=== PATIENT | male | born 1935 | race Caucasian/White ===

== ENCOUNTER → 2019-08-31 | Outpatient (CLI) | payer OTHER ==
[~2019-08-31] MED LIST: ACYC5TO15G TOP; ACYC800 PO; ALLO300 PO; AMLO10 PO; AMLO5; ASPI325 PO; ASPI81CH PO; ERGO400; FLONASE ALLERG9.9 ML; HYDACE7.5 PO; HYDCHL25 PO; HYDMOR2 PO; LISI20; METPRE4DP PO; ROSU10TA; RXHYDMOR2 PO; SIMV10 PO; ZESTRIL40 MG PO
[2019-08-31 14:41] LABS: Anion Gap 4 mmol/L (6-16); Blood Urea Nitrogen 27 mg/dL (8-24); Bun/Creatinine Ratio 23.3 (12.0-20.0); CO2, Blood 26 mmol/L (21-32); Calcium, Blood 9.5 mg/dL (8.5-10.1); Chloride, Blood 108 mmol/L (98-108); Creatinine, Blood 1.16 mg/dL (0.60-1.20); Glomerular Filtration Rate >60 (60-); Glucose, Blood 96 mg/dL (70-99); Potassium, Blood 4.1 mmol/L (3.5-5.5); Sodium, Blood 138 mmol/L (136-145)
== END | disposition home or self-care (01) ==
LOC: LAB 09:50 → LAB SHORT 09:50
PROVIDERS: Hospitalist
DX: I10 Essential (primary) hypertension (principal)
CPT/HCPCS: 80048

== ENCOUNTER → 2020-02-23 | Outpatient (CLI) | payer OTHER ==
[2020-02-23 15:36] LABS: Cholesterol 160 mg/dL (50-200); HDL Cholesterol 32 mg/dL (>39); LDL/HDL RATIO 3.4; Low Density Lipoprotein Chol 108 mg/dL (0-110); Triglycerides 102 mg/dL (30-160); Very Low Density Lipoprot Chol 20 mg/dL (6-32)
== END ==
LOC: LAB 13:49 → LAB SHORT 13:49
PROVIDERS: Hospitalist
DX: Z12.5 Encounter for screening for malignant neoplasm of prostate (principal); E78.5 Hyperlipidemia, unspecified; I10 Essential (primary) hypertension
CPT/HCPCS: 80061; G0103

== ENCOUNTER → 2020-06-19 | Outpatient (CLI) | payer OTHER | END | disposition home or self-care (01) | LOC: LAB SHORT 10:45 → PLD 10:45 | DX: L81.4 Other melanin hyperpigmentation (principal) | CPT/HCPCS: 88305 ==

== ENCOUNTER 2020-07-28 21:28 | Emergency (ER) | payer OTHER ==
[~2020-07-28] VITALS: Ht 180.3 cm; Wt 97.5 kg
[2020-07-28] MEDS ORDERED: Naprosyn500 MG PO (22:38)
== END 2020-07-28 23:05 | disposition home or self-care (01) ==
LOC: ER 21:28
DX: M25.552 Pain in left hip (principal); I10 Essential (primary) hypertension; Z79.899 Other long term (current) drug therapy; Z79.82 Long term (current) use of aspirin; Z87.891 Personal history of nicotine dependence
CPT/HCPCS: 96372; 99283-25; J1885

== ENCOUNTER 2021-03-29 06:18 | Day surgery (SDC) | payer OTHER ==
[~2021-03-29] VITALS: Ht 180.3 cm; Wt 97.7 kg
[~2021-03-29 06:18] MED LIST changes: +Naprosyn500 MG PO; +Percocet 5-3251 EACH PO
--- NOTE | 2021-03-29 06:55 | NUR ---
03/29/21 0655 Kami Sorenson 0638 TETRACAINE DROP PLACED IN LT EYE PER DR ORDERS. 0641 PLEDGET PLACED IN LT EYE PER DR ORDERS.
== END 2021-03-29 08:11 | disposition home or self-care (01) ==
LOC: ORSCSDS 06:18
PROVIDERS: Ophthalmology
PROC: 08RK3JZ Replacement of Left Lens with Synthetic Substitute, Percutaneous Approach (ICD-10-PCS; principal; 2021-03-29 07:30)
DX: H25.12 Age-related nuclear cataract, left eye (principal); I10 Essential (primary) hypertension; Z79.899 Other long term (current) drug therapy; Z87.891 Personal history of nicotine dependence
CPT/HCPCS: A9270; J2001; J2250; J3010; J3301; J7040; V2632

== ENCOUNTER 2021-05-03 11:53 | Day surgery (SDC) | payer OTHER ==
[~2021-05-03] VITALS: Ht 180.3 cm; Wt 97.9 kg
--- NOTE | 2021-05-03 12:20 | NUR ---
05/03/21 1220 Rell Rivera CALL LIGHT WITHIN REACH. PLEDGET AND TETRACAINE PLACED AT 1209 ON RIGHT EYE.
== END 2021-05-03 13:50 | disposition home or self-care (01) ==
LOC: ORSCSDS 11:53
PROVIDERS: Ophthalmology
PROC: 08RJ3JZ Replacement of Right Lens with Synthetic Substitute, Percutaneous Approach (ICD-10-PCS; principal; 2021-05-03 13:00)
DX: H25.11 Age-related nuclear cataract, right eye (principal); I10 Essential (primary) hypertension; E66.9 Obesity, unspecified; Z68.30 Body mass index [BMI] 30.0-30.9, adult; Z79.899 Other long term (current) drug therapy
CPT/HCPCS: J2001; J2250; J3301; J7040; V2632

== ENCOUNTER → 2021-09-13 | Outpatient (CLI) | payer OTHER ==
[2021-09-13 15:43] LABS: Albumin, Blood 3.8 g/dL (3.4-5.0); Albumin/Globulin Ratio 0.9 (0.8-1.8); Bilirubin, Total 0.8 mg/dL (0.1-1.0); Bun/Creatinine Ratio 21.2 (12.0-20.0); Calcium, Blood 9.2 mg/dL (8.5-10.1); Creatinine, Blood 1.18 mg/dL (0.60-1.20); Globulin, Blood 4.3 g/dL (2.2-4.0); Total Protein, Blood 8.1 g/dL (6.4-8.2)
== END | disposition home or self-care (01) ==
LOC: LAB 10:22 → LAB SHORT 10:22
PROVIDERS: Hospitalist
DX: I10 Essential (primary) hypertension (principal)
CPT/HCPCS: 80053

== ENCOUNTER → 2022-07-18 | Outpatient (CLI) | payer OTHER ==
[2022-07-18 17:30] LABS: Bun/Creatinine Ratio 14.7 (12.0-20.0); Calcium, Blood 8.9 mg/dL (8.5-10.1); Creatinine, Blood 1.02 mg/dL (0.60-1.20); Potassium, Blood 4.2 mmol/L (3.5-5.5)
== END | disposition home or self-care (01) ==
LOC: LAB 08:50 → LAB SHORT 08:50
PROVIDERS: Hospitalist
DX: N17.1 Acute kidney failure with acute cortical necrosis (principal)
CPT/HCPCS: 80048

== ENCOUNTER → 2023-02-18 | Outpatient (CLI) | payer OTHER ==
[2023-02-18 16:10] LABS: Anion Gap 3 mmol/L (6-16); Blood Urea Nitrogen 25 mg/dL (8-24); Bun/Creatinine Ratio 20.7 (12.0-20.0); CO2, Blood 27 mmol/L (21-32); Calcium, Blood 9.1 mg/dL (8.5-10.1); Chloride, Blood 110 mmol/L (98-108); Cholesterol 146 mg/dL (50-200); Creatinine, Blood 1.21 mg/dL (0.60-1.20); Glomerular Filtration Rate 58 (60-); Glucose, Blood 100 mg/dL (70-99); HDL Cholesterol 29 mg/dL (>39); LDL/HDL RATIO 3.2; Low Density Lipoprotein Chol 93 mg/dL (0-110); Potassium, Blood 4.1 mmol/L (3.5-5.5); Sodium, Blood 140 mmol/L (136-145); Triglycerides 119 mg/dL (30-160); Very Low Density Lipoprot Chol 23 mg/dL (6-32)
== END | disposition home or self-care (01) ==
LOC: LAB SHORT 08:40 → LAB 08:40
PROVIDERS: Hospitalist
DX: I12.9 Hypertensive chronic kidney disease with stage 1 through stage 4 chronic kidney disease, or unspecified chronic kidney disease (principal); N18.31 Chronic kidney disease, stage 3a; E78.5 Hyperlipidemia, unspecified; R97.20 Elevated prostate specific antigen [PSA]
CPT/HCPCS: 80048; 80061; 83970; 84153

== ENCOUNTER 2023-08-31 16:19 | Emergency (ER) | payer OTHER ==
[~2023-08-31] VITALS: Ht 180.3 cm; Wt 92.5 kg
[2023-08-31 16:29] VITALS: BP 155/87
== END 2023-08-31 18:00 | disposition home or self-care (01) ==
LOC: ER 16:19
DX: S46.112A Strain of muscle, fascia and tendon of long head of biceps, left arm, initial encounter (principal); X50.0XXA Overexertion from strenuous movement or load, initial encounter; Z79.899 Other long term (current) drug therapy; Z79.82 Long term (current) use of aspirin; I10 Essential (primary) hypertension
CPT/HCPCS: 76882; 99283-25

== ENCOUNTER 2023-12-25 05:33 | Emergency (ER) | payer OTHER ==
[~2023-12-25] VITALS: Ht 180.3 cm; Wt 90.7 kg
[2023-12-25 08:26] VITALS: BP 144/73
[2023-12-25] MEDS ORDERED: CEPH500 PO (08:27)
== END 2023-12-25 08:52 | disposition home or self-care (01) ==
LOC: ER 05:33
DX: L02.31 Cutaneous abscess of buttock (principal); I10 Essential (primary) hypertension; Z79.82 Long term (current) use of aspirin; Z79.899 Other long term (current) drug therapy; Z87.891 Personal history of nicotine dependence
CPT/HCPCS: 99282

== ENCOUNTER → 2024-02-24 | Outpatient (CLI) | payer OTHER ==
[~2024-02-24] MED LIST changes: +CEPH500 PO
[2024-02-24 16:02] LABS: Calcium, Blood 8.9 mg/dL (8.5-10.1); Creatinine, Blood 1.26 mg/dL (0.60-1.20); Potassium, Blood 4.1 mmol/L (3.5-5.5)
== END | disposition home or self-care (01) ==
LOC: LAB 09:05 → LAB SHORT 09:05
PROVIDERS: Hospitalist
DX: I12.9 Hypertensive chronic kidney disease with stage 1 through stage 4 chronic kidney disease, or unspecified chronic kidney disease (principal)
CPT/HCPCS: 80048

== ENCOUNTER 2024-03-17 11:32 | Emergency (ER) | payer OTHER ==
[~2024-03-17] VITALS: Ht 180.3 cm; Wt 86.2 kg
[2024-03-17 12:29] LABS: BASOPHILS ABSOLUTE AUTO 0.02 K/mm3 (0.00-0.23); BASOPHILS PERCENT AUTO 0 % (0-2); EOSINOPHILS ABSOLUTE AUTO 0.12 K/mm3 (0.00-0.68); EOSINOPHILS PERCENT AUTO 2 % (0-6); Hemoglobin 8.9 g/dL (13.5-17.5); Mean Corpuscular HGB 23.7 pg (26.0-34.0); Mean Corpuscular HGB Conc 28.7 g/dL (31.5-36.5); Mean Corpuscular Volume 83 fL (80-100); NRBC ABSOLUTE 0.06 K/mm3 (0.00-0.02); NRBC Auto 0.9 /100 WBC (0.0-0.2); Platelet Count 96 K/mm3 (150-400); RDW Coefficient Variation 21.8 % (11.7-14.2); RDW Standard Deviation 62.3 fL (35.1-46.3); Red Blood Cell Count 3.75 M/mm3 (4.30-5.90); White Blood Cell Count 6.47 K/mm3 (4.00-11.30)
[2024-03-17 12:33] LABS: IMMATURE GRAN ABSOLUTE AUTO 0.36 K/mm3 (0.00-0.10); IMMATURE GRAN PERCENT AUTO 6 % (0-1); LYMPHOCYTES ABSOLUTE AUTO 2.39 K/mm3 (0.84-5.20); LYMPHOCYTES PERCENT AUTO 37 % (21-46); MONOCYTES ABSOLUTE AUTO 0.66 K/mm3 (0.16-1.47); MONOCYTES PERCENT AUTO 10 % (4-13); NEUTROPHILS ABSOLUTE AUTO 2.92 K/mm3 (1.96-9.15); NEUTROPHILS PERCENT AUTO 45 % (41-73)
[2024-03-17 12:53] LABS: BASOPHILS ABSOLUTE MAN 0.06 K/mm3 (0.00-0.23); BASOPHILS PERCENT MAN 1 % (0-2); EOSINOPHILS ABSOLUTE MAN 0.19 K/mm3 (0.00-0.68); EOSINOPHILS PERCENT MAN 3 % (0-6); LYMPHOCYTES % ATYPICAL MANUAL 2 % (0-0); LYMPHOCYTES ABSOLUTE MAN 2.97 K/mm3 (0.84-5.20); LYMPHOCYTES PERCENT MAN 44 % (21-46); MONOCYTES ABSOLUTE MAN 0.19 K/mm3 (0.16-1.47); MONOCYTES PERCENT MAN 3 % (4-13); MYELOCYTE ABSOLUTE MAN 0.12 K/mm3 (0.00-0.00); MYELOCYTE PERCENT MAN 2 % (0-0); NEUTROPHILS ABSOLUTE MAN 2.91 K/mm3 (1.96-9.15); SEG NEUTROPHILS PERCENT MAN 45 % (41-73); TOTAL CELLS COUNTED 100
[2024-03-17 13:06] LABS: Albumin, Blood 3.5 g/dL (3.4-5.0); Albumin/Globulin Ratio 0.8 (0.8-1.8); Bilirubin, Total 0.6 mg/dL (0.1-1.0); Bun/Creatinine Ratio 15.1 (12.0-20.0); Creatinine, Blood 1.52 mg/dL (0.60-1.20); Globulin, Blood 4.5 g/dL (2.2-4.0); Potassium, Blood 3.7 mmol/L (3.5-5.5)
[2024-03-17] MEDS ORDERED: TraMADol HCl 50 MG Tab PO ONE (15:55)
[2024-03-17] MEDS ORDERED: Ketorolac Tromethamine 30mg Vial IV ONE (15:55)
[2024-03-17] MEDS ORDERED: Ultram50 MG PO (15:55)
[2024-03-17 16:02] VITALS: BP 151/80
== END 2024-03-17 16:10 | disposition home or self-care (01) ==
LOC: ER 11:32
PROVIDERS: Student in an Organized Health Care Education/Training Program
DX: M54.16 Radiculopathy, lumbar region (principal); G62.9 Polyneuropathy, unspecified; I10 Essential (primary) hypertension; E78.5 Hyperlipidemia, unspecified; Z87.891 Personal history of nicotine dependence
CPT/HCPCS: 71046; 72100; 74175; 80053; 85025; 93005; 93010; 96374-59; 99285-25; A9270; J1885; Q9967

== ENCOUNTER 2024-05-10 16:28 | Inpatient (IN) | payer OTHER ==
[~2024-05-10] VITALS: Ht 180.3 cm; Wt 83.2 kg
[2024-05-10 17:10] LABS: Source, Urine Clean Catch
[2024-05-10 17:31] LABS: Appearance, Urine Bloody (Clear); Bilirubin, Urine Neg (Neg); Blood, Urine 5+ (Neg); Color, Urine Red (P-Yellow); Glucose Qualitative, Urine Neg (Neg); Ketones, Urine 1+ (Neg); Leukocyte Esterase, Urine 2+ (Neg); Nitrite, Urine Pos (Neg); Protein, Urine 4+ (Neg); Specific Gravity, Urine 1.015 (1.003-1.022); Urobilinogen, Urine 1+ (Normal)
[2024-05-10 17:33] LABS: Red Blood Cells, Urine TNTC /hpf (0-2); White Blood Cells, Urine TNTC /hpf (0-5)
[2024-05-10 17:36] LABS: Bacteria Many /hpf; Squamous Epithelial Cells Rare /hpf (Few)
[2024-05-10 17:37] LABS: Mucus Light (0-Heavy); Renal Epithelial Rare /hpf (0-Rare)
[2024-05-10] MEDS ORDERED: CeFAZolin Sodium 1,000 MG in NS 50 ML IV ONE (18:45)
[2024-05-10] MEDS ORDERED: NS 1,000 ML IV SCH ×2 (18:45→21:05)
[2024-05-10 18:48] LABS: Albumin, Blood 3.3 g/dL (3.4-5.0); Albumin/Globulin Ratio 0.7 (0.8-1.8); Bilirubin, Total 0.5 mg/dL (0.1-1.0); Bun/Creatinine Ratio 20.9 (12.0-20.0); Creatinine, Blood 1.53 mg/dL (0.60-1.20); Globulin, Blood 4.6 g/dL (2.2-4.0); Potassium, Blood 3.9 mmol/L (3.5-5.5); Total Protein, Blood 7.9 g/dL (6.4-8.2)
[2024-05-10 19:09] LABS: International Normalized Ratio 1.12; Prothrombin Time Results 11.9 Sec (9.7-11.5)
[2024-05-10 20:44] LABS: IMMATURE RETIC FRACTION 45.3 % (2.3-16.0); RETIC HGB EQUIVALENT 18.7 pg (28.20-36.60); RETICULOCYTE ABSOLUTE 0.1454 M/mm3 (0.0200-0.1100); RETICULOCYTE COUNT PERCENT 4.8 % (0.50-2.50)
[2024-05-10] MEDS ORDERED: Azithromycin 500 MG in NS 250 ML IV SCH (21:00)
[2024-05-10] MEDS ORDERED: CefTRIAXone Sodium 1,000 MG in NS 100 ML IV SCH (21:00)
[2024-05-10] MEDS ORDERED: OxyCODONE HCL 5 MG TAB PO PRN (21:05)
[2024-05-10] MEDS ORDERED: Ondansetron HCl 2 MG / ML 2ML Vial IV PRN (21:05)
[2024-05-10] MEDS ORDERED: Acetaminophen 325 MG TABLET PO PRN (21:05)
[2024-05-10] MEDS ORDERED: Allopurinol 100 MG Tab PO SCH (22:00)
[2024-05-11] VITALS (7 sets, daily range): BP systolic 103–149; BP diastolic 49–79
--- NOTE | 2024-05-11 01:29 | NUR ---
ADMISSION NOTE PATIENT ARRIVED TO PCU 01 VIA STRETCHER. HE WAS ABLE TO STAND AND SELF TRANSFER TO THE BED. PATIENT IS ALERT AND ORIENTED X4. DNR WRISTBAND PLACED ON PATIENT'S LEFT WRIST. DENIES HAVING ANY PAIN OR SHORTNESS OF BREATH. NO SKIN BREAKDOWN NOTED. VITAL SIGNS STABLE, SINUS RHYTHM ON TELE. ON 2 LITERS O2 VIA NASAL CANULA TO MAINTAIN SPO2 >90%. WILL CONTINUE TO MONITOR. CALL LIGHT WITHIN REACH.
[2024-05-11 04:26] LABS: International Normalized Ratio 1.19; Prothrombin Time Results 12.6 Sec (9.7-11.5)
[2024-05-11 04:40] LABS: Albumin, Blood 3.1 g/dL (3.4-5.0); Albumin/Globulin Ratio 0.8 (0.8-1.8); Bilirubin, Total 0.6 mg/dL (0.1-1.0); Bun/Creatinine Ratio 21.7 (12.0-20.0); Calcium, Blood 8.5 mg/dL (8.5-10.1); Creatinine, Blood 1.29 mg/dL (0.60-1.20); Globulin, Blood 3.9 g/dL (2.2-4.0); Magnesium, Blood 2.2 mg/dL (1.6-2.4); Potassium, Blood 3.6 mmol/L (3.5-5.5)
--- NOTE | 2024-05-11 05:44 | NUR ---
SHIFT SUMMARY PATIENT ALERT AND ORIENTED X4. HAD NO COMPLAINTS OF PAIN OR SHORTNESS OF BREATH. VITAL SIGNS STABLE, CURRENTLY ON 3 LITERS O2 VIA NC WITH SPO2 >90%. NO ACUTE ISSUES NOTED OVERNIGHT. WILL CONTINUE TO MONITOR. CALL LIGHT WITHIN REACH.
[2024-05-11 05:46] LABS: Acinetobacter baumannii DNA Not Detected copy/mL (NOT DETECT); Adenovirus DNA Not Detected (NOT DETECT); CTX-M Resistance Gene Not Detected; Chlamydia pneumonia Not Detected (NOT DETECT); Enterobacter cloacae DNA Not Detected copy/mL (NOT DETECT); Escherichia coli DNA Not Detected copy/mL (NOT DETECT); Haemophilus influenzae DNA Not Detected copy/mL (NOT DETECT); Human Coronavirus RNA Not Detected (NOT DETECT); Human Metapneumovirus RNA Not Detected (NOT DETECT); IMP Resistance Gene Not Detected; Influenza virus A RNA Not Detected (NOT DETECT); Influenza virus B RNA Not Detected (NOT DETECT); KPC Resistance Gene Not Detected; Klebsiella aerogenes DNA Not Detected copy/mL (NOT DETECT); Klebsiella oxytoca DNA Not Detected copy/mL (NOT DETECT); Klebsiella pneumoniae DNA Detected Bin 10^4 copy/mL (NOT DETECT); Legionella pneumophila Not Detected (NOT DETECT); Moraxella catarrhalis DNA Not Detected copy/mL (NOT DETECT); Mycoplasma pneumoniae Not Detected (NOT DETECT); NDM Resistance Gene Not Detected; OXA-48-like Resistance Gene Not Detected; Parainfluenza virus RNA Not Detected (NOT DETECT); Proteus sp DNA Not Detected copy/mL (NOT DETECT); Pseudomonas aeruginosa DNA Not Detected copy/mL (NOT DETECT); Respiratory syncytial Vir RNA Not Detected (NOT DETECT); Rhinovirus+Enterovirus RNA Not Detected (NOT DETECT); Serratia marcescens DNA Not Detected copy/mL (NOT DETECT); Staphylococcus aureus DNA Not Detected copy/mL (NOT DETECT); Streptococcus agalactiae DNA Not Detected copy/mL (NOT DETECT); Streptococcus pneumoniae DNA Not Detected copy/mL (NOT DETECT); Streptococcus pyogenes DNA Not Detected copy/mL (NOT DETECT); VIM Resistance Gene Not Detected
[2024-05-11 05:48] LABS: Hemoglobin 8.1 g/dL (13.5-17.5); Mean Corpuscular HGB 25.6 pg (26.0-34.0); Mean Corpuscular HGB Conc 31.2 g/dL (31.5-36.5); Mean Corpuscular Volume 82 fL (80-100); NRBC ABSOLUTE 0.63 K/mm3 (0.00-0.02); NRBC Auto 2.8 /100 WBC (0.0-0.2); RDW Coefficient Variation 19.3 % (11.7-14.2); RDW Standard Deviation 54.7 fL (35.1-46.3); Red Blood Cell Count 3.17 M/mm3 (4.30-5.90); White Blood Cell Count 22.82 K/mm3 (4.00-11.30)
[2024-05-11 05:52] LABS: Platelet Count 44 K/mm3 (150-400)
[2024-05-11 06:19] LABS: BAND PERCENT MAN 8 % (0-8); BASOPHILS PERCENT MAN 0 % (0-2); EOSINOPHILS ABSOLUTE MAN 0.68 K/mm3 (0.00-0.68); EOSINOPHILS PERCENT MAN 3 % (0-6); LYMPHOCYTES % ATYPICAL MANUAL 1 % (0-0); LYMPHOCYTES ABSOLUTE MAN 6.16 K/mm3 (0.84-5.20); LYMPHOCYTES PERCENT MAN 26 % (21-46); METAMYELOCYTE ABSOLUTE MAN 0.22 K/mm3 (0.00-0.00); METAMYELOCYTE PERCENT MAN 1 % (0-0); MONOCYTES ABSOLUTE MAN 2.28 K/mm3 (0.16-1.47); MONOCYTES PERCENT MAN 10 % (4-13); NEUTROPHILS ABSOLUTE MAN 11.18 K/mm3 (1.96-9.15); SEG NEUTROPHILS PERCENT MAN 41 % (41-73); TOTAL CELLS COUNTED 100
[2024-05-11 06:20] LABS: BLASTS PERCENT MAN 2 % (0-0); MYELOCYTE ABSOLUTE MAN 1.59 K/mm3 (0.00-0.00); MYELOCYTE PERCENT MAN 7 % (0-0); PROMYELOCYTE ABSOLUTE MAN 0.22 K/mm3 (0.00-0.00); PROMYELOCYTE PERCENT MAN 1 % (0-0)
[2024-05-11 07:31] LABS: Adenovirus Not Detected (NOT DETECT); Bordetella pertussis Not Detected (NOT DETECT); Chlamydophila pneumoniae Not Detected (NOT DETECT); Coronavirus 229E Not Detected (NOT DETECT); Coronavirus HKU1 Not Detected (NOT DETECT); Coronavirus NL63 Not Detected (NOT DETECT); Coronavirus OC43 Not Detected (NOT DETECT); Human Metapneumovirus Not Detected (NOT DETECT); Human Rhinovirus/Enterovirus Not Detected (NOT DETECT); Influenza A/2009-H1 Not Detected (NOT DETECT); Influenza A/H1 Not Detected (NOT DETECT); Influenza A/H3 Not Detected (NOT DETECT); Influenza B Not Detected (NOT DETECT); Mycoplasma pneumoniae Not Detected (NOT DETECT); Parainfluenza Virus 1 Not Detected (NOT DETECT); Parainfluenza Virus 2 Not Detected (NOT DETECT); Parainfluenza Virus 3 Not Detected (NOT DETECT); Parainfluenza Virus 4 Not Detected (NOT DETECT); Respiratory Syncytial Virus Not Detected (NOT DETECT); SARS-Cov-2 (COVID-19), BioFire Not Detected (NOT DETECT)
--- NOTE | 2024-05-11 07:50 | NUR ---
ASSUMED CARE: REPORT RECEIVED FROM JORDY MAC. ASSUMED CARE OF THIS PT AT APPROX 0700. ON ASSESSEMENT, THE PT IS A&O TO ALL, PLEASANT & COOPERATIVE W/ CARE MEASURES. HE DENIES ANY CURRENT PAIN, CHEST PRESSURE OR SOB. LS DIM & SLIGHTLY COARSE IN BASES. PT ON 6L NC W/ O2 SATS > 92% ON AVG, O2 INCREASED DURING NOC SHIFT FOR DESATS WHILE SLEEPING, PER REPORT. MONITOR SHOWS SB-SR W/ HR 50-60s, OCCASIONAL PVCs. BP SLIGHTLY ELEVATED THIS AM W/ SCHEDULED ANTIHYPERTENSIVES PER EMAR TO BE GIVEN. PT HAS NO GI COMPLAINTS AT THIS TIME. USES URINAL INDEPENDENTLY IN ROOM, SOME URINARY URGENCY REPORTED. SKIN OVERALL INTACT, SOME SCATTERED BRUISING NOTED TO BUE. PT REPOSITIONS SELF PRN FOR COMFORT. STEEL ERECTING PUSHER AT BEDSIDE TO COMPLETE EXAM THIS MORNING. WILL CONTINUE TO MONITOR & UPDATE NEEDED.
[2024-05-11] MEDS ORDERED: Lisinopril 20 MG Tab PO SCH (09:00)
[2024-05-11] MEDS ORDERED: AmLODIPine Besylate 5 MG Tab PO SCH (09:00)
--- NOTE | 2024-05-11 16:30 | NUR ---
HARDY REIS VAMP LINER: PROVIDER AT BEDSIDE FOR DR JUAREZ, CONSULTED STEEL CHIPPER. SHE HAS PLACED ORDERS FOR ADDITIONAL LABWORK TO BE COMPLETED IN THE AM & SPOKEN W/ THE PT & HIS FAMILY REGARDING POC. AT THIS TIME, THE PLAN WILL BE FOR THE PT TO FOLLOW-UP WITH OUTPATIENT HEMATOLOGY ONCE DISCHARGED FROM HOSPITAL. SHE WOULD LIKE THE CANCER CENTER TO BE NOTIFIED IF THE PT's CBC IS WORSENED SIGNIFICANTLY ON AM LABS.
--- NOTE | 2024-05-11 17:54 | NUR ---
SHIFT SUMMARY: NO ACUTE CHANGES SINCE PRIOR UPDATES. PT REMAINS A&O TO ALL, AMBULATORY IN ROOM W/ SBA FOR LINE MANAGEMENT. DENIES PAIN. LS DIM IN BASES, PT ON 5L NC W/ O2 SATS > 92% ON AVG. NO SPUTUM EXPECTORATED THIS SHIFT, UNABLE TO COLLECT ORDERED SPECIMEN. MONITOR SHOWS SB-SR W/ HR 50-60s, OCCASIONAL PVCs NOTED, BP STABLE. PT HAS NO GI COMPLAINTS, IS TOLERATING PO INTAKE WELL. VOIDING W/O DIFFICULTY USING URINAL, URINE CONTINUES TO BE DARK/ BRETT RED IN COLOR. SKIN CONDITION OVERALL INTACT, ECCHYMOTIC. PT REPOSITIONS SELF PRN FOR COMFORT. WILL CONTINUE TO MONITOR & REPORT OFF TO ONCOMING RN.
[2024-05-11] MEDS ORDERED: NS 250 ML IV PRN (20:00)
[2024-05-12 04:55] VITALS: BP 118/55
[2024-05-12 04:58] LABS: Hematocrit 27.4 % (37.0-53.0); Hemoglobin 8.2 g/dL (13.5-17.5); Mean Corpuscular HGB 25.1 pg (26.0-34.0); Mean Corpuscular HGB Conc 29.9 g/dL (31.5-36.5); Mean Corpuscular Volume 84 fL (80-100); NRBC ABSOLUTE 0.73 K/mm3 (0.00-0.02); RDW Coefficient Variation 19.6 % (11.7-14.2); RDW Standard Deviation 56.6 fL (35.1-46.3); Red Blood Cell Count 3.27 M/mm3 (4.30-5.90); White Blood Cell Count 24.64 K/mm3 (4.00-11.30)
[2024-05-12 05:07] LABS: Platelet Count 43 K/mm3 (150-400)
[2024-05-12 05:20] LABS: Anion Gap 10 mmol/L (3-11); Blood Urea Nitrogen 24 mg/dL (8-24); Bun/Creatinine Ratio 18.6 (12.0-20.0); CO2, Blood 22 mmol/L (21-32); Calcium, Blood 8.5 mg/dL (8.5-10.1); Chloride, Blood 115 mmol/L (98-108); Creatinine, Blood 1.29 mg/dL (0.60-1.20); Ferritin, Serum 124 ng/mL (26-388); Glomerular Filtration Rate 53 (60-); Glucose, Blood 98 mg/dL (70-99); Iron Serum 98 ug/dL (65-175); Magnesium, Blood 2.2 mg/dL (1.6-2.4); Phosphorus, Blood 3.8 mg/dL (2.5-4.9); Potassium, Blood 3.6 mmol/L (3.5-5.5); Sodium, Blood 143 mmol/L (136-145)
[2024-05-12 05:50] LABS: BAND PERCENT MAN 3 % (0-8); BASOPHILS PERCENT MAN 0 % (0-2); EOSINOPHILS PERCENT MAN 0 % (0-6); LYMPHOCYTES % ATYPICAL MANUAL 15 % (0-0); LYMPHOCYTES ABSOLUTE MAN 7.63 K/mm3 (0.84-5.20); LYMPHOCYTES PERCENT MAN 16 % (21-46); MONOCYTES ABSOLUTE MAN 0.98 K/mm3 (0.16-1.47); MONOCYTES PERCENT MAN 4 % (4-13); NEUTROPHILS ABSOLUTE MAN 12.32 K/mm3 (1.96-9.15); SEG NEUTROPHILS PERCENT MAN 47 % (41-73); TOTAL CELLS COUNTED 100
[2024-05-12 05:51] LABS: BLASTS PERCENT MAN 3 % (0-0); MYELOCYTE ABSOLUTE MAN 2.95 K/mm3 (0.00-0.00); MYELOCYTE PERCENT MAN 12 % (0-0)
--- NOTE | 2024-05-12 06:14 | NUR ---
SHIFT SUMMARY PATIENT ALERT AND ORIENTED X4. HAD NO COMPLAINTS OF PAIN OR SHORTNESS OF BREATH. REPORTS HAVING NASAL CONGESTION, PLACED HUMIDIFICATION ON OXYGEN. CURRENTLY ON 7 LITERS O2 VIA SIMPLE MASK. BLOOD PRESSURE STABLE, SINUS AMPARO/SINUS RHYTHM 50'S-60'S ON TELE. NO ACUTE ISSUES NOTED OVERNIGHT. WILL CONTINUE TO MONITOR. CALL LIGHT WITHIN REACH.
[2024-05-12 07:44] VITALS: BP 144/78
[2024-05-12 11:07] VITALS: BP 142/64
[2024-05-12 15:17] VITALS: BP 141/69
--- NOTE | 2024-05-12 16:34 | NUR ---
MET WITH KELLE, HIS KIMBER, AND DAUGHTER GALILEA. WE DISCUSSED HIS OVERALL HEALTH RECENTLY. TEST RESULTS ARE PENDING BUT HE MET WITH HARDY REIS FROM ONCOLOGY YESTERDAY. HE HAS HAD A 25 LB WEIGHTLOSS OVER THE LAST YEAR AND POOR APPETITE, HE REPORTS THAT FOOD HAS TASTED SALTY. HE IS ON ROOM AIR AT HOME AND HE IS CURRENTLY ON 3-4 L NC. HE REPORTED THAT HE HAS JUST BEEN FEELING GENERALLY WEAK AND HAS HAD TO GET HIS BEARINGS BEFORE WALKIN HE IS DIZZY WHEN HE INITALLY STANDS. HE DENIES ANY FALLS. PC WILL REMAIN AVALIABLE.
--- NOTE | 2024-05-12 17:14 | NUR ---
SHIFT SUMMARY PT A&Ox4, CALLS AND COMMUNICATES NEEDS APPROPRIATELY. SBA TO BATHROOM. CONTINENT OF URINE AND BOWEL. PT HAVING BRETT RED URINE OUTPUT. NO HEMOPTYSIS THIS SHIFT. BP STABLE, SINUS 70's, DENIES CP/PRESSURE. SpO2> 92% 4-6 L VIA NC/VENTI MASK, DENIES SOB. PT WITH CONGESTED COUGH, ENCOURAGED TO COUGH AND DEEP BREATH. PT DENIED PAIN THROUGHOUT SHIFT. NO OTHER EVENTS, WILL REPORT TO ONCOMING RN.
[2024-05-12 20:30] VITALS: BP 151/84
[2024-05-12 23:38] VITALS: BP 143/73
[2024-05-13 03:16] VITALS: BP 122/58
--- NOTE | 2024-05-13 05:06 | NUR ---
1915 Assumed care of pt, bedside report completed. Shift plan of care reviewed with pt, all questions answered. Pt with uneventful shift without changes in assessment. Denies pain, reporting signficant fatigue. UOP is adequate though dark red/aron red blood colored. Per nurse report and pt report this is not new and the color is unchanged from prior today. Pt knows he needs an Urology consult though is not clear when that will be. Pt expressing concern over future planof care and how that may impact his . Therapeutic listening utilized and encouraged to express feelings to staff as that is what we are here for. Please see full assessment for additional details. No additional complaints or concerns at this time, will continue to monitor.
[2024-05-13 07:30] VITALS: BP 152/72
--- NOTE | 2024-05-13 09:54 | NUR ---
AM NOTE PT ALERT, ORIENTED X4; CALM AND COOPERATIVE WITH CARE. PT RESTING IN BED, UP WITH SBA IN ROOM. PT DENIES PAIN, CHEST PAIN/PRESSURE, SOB, NAUSEA, DIZZINESS AND NUMB/TINGLING. TELE SINUS 50-60'S, PER TELE RUNS OF TENZIN, BP STABLE. SPO2 >90% ON 4L O2 VIA WHILE AWAKE, 6L SIMPLE MASK WHILE SLEEPING. ABD SOFT, NONTENDER, +BT T/O. OTHER VSS. NO OTHER ACUTE CHANGES NOTED. WILL CONTINUE TO MONITOR.
--- NOTE | 2024-05-13 11:16 | NUR ---
SPiritual Care Visit. Pt. is awake in bed and welcomes my visit. Family members are at bedside. Pt. is pleasant. Facilitated a life review and introduced myself as a seam press operator. Pt. displayed evidence of being positive and hospelful, though he verbalized concern about not being able to get out of bed. Pt. verbalized his desire to have someone like PT to assist him walking. Pt. and family verbalized gratitude for the spiritual care visit.
[2024-05-13] MEDS ORDERED: Azithromycin 250 MG Tab PO SCH (12:00)
[2024-05-13 12:07] VITALS: BP 147/80
[2024-05-13 15:50] VITALS: BP 138/73
--- NOTE | 2024-05-13 16:09 | NUR ---
SHIFT SUMMARY URINE CLEARING UP THIS AFTERNOON, NO PINK, ORANGE/DARK YELLOW. NO OTHER ACUTE CHANGES NOTED. VSS. WILL CONTINUE TO MONITOR.
--- NOTE | 2024-05-13 18:45 | NUR ---
TRANSFER PATIENT TRANSFERED FROM PCU AT END OF SHIFT. PATIENT ALERT AND INTERACTIVE. DENIES ANY PAIN. TALKING ABOUT HAVING PNEUMONIA AND COUGHING UP BLOODY SPUTUM. PATIENT ALSO STATES THAT HE IS STILL VOIDING DARK URINE BUT BETTER THAN WHEN HE CAME IN. PATIENT IS HOPEFUL TO GO HOME TOMORROW. CURRENTLY ON 02 AT 2L AT THIS TIME. REPORTED THAT PATIENT IS A STAND BY ASSIST WITH AMBULATING.
[2024-05-13 19:33] VITALS: BP 152/74
[2024-05-14 04:26] VITALS: BP 129/67
[2024-05-14 05:07] LABS: Hematocrit 24.5 % (37.0-53.0); Hemoglobin 7.1 g/dL (13.5-17.5); Mean Corpuscular HGB 24.6 pg (26.0-34.0); Mean Corpuscular Volume 85 fL (80-100); NRBC ABSOLUTE 0.39 K/mm3 (0.00-0.02); NRBC Auto 1.6 /100 WBC (0.0-0.2); RDW Coefficient Variation 19.9 % (11.7-14.2); RDW Standard Deviation 59.6 fL (35.1-46.3); Red Blood Cell Count 2.89 M/mm3 (4.30-5.90); White Blood Cell Count 24.41 K/mm3 (4.00-11.30)
[2024-05-14 05:16] LABS: Platelet Count 42 K/mm3 (150-400)
--- NOTE | 2024-05-14 05:55 | NUR ---
SHIFT SUMMARY: PATIENT FULLY ORIENTED, COOPERATIVE. DARK RED URINE; DR. CAMPBELL RECOMMENDED MONITORING PATIENT. ON OXYGEN. SLEPT WELL THROUGH NIGHT.
[2024-05-14 06:34] LABS: Magnesium, Blood 2.2 mg/dL (1.6-2.4)
[2024-05-14 06:39] LABS: Anion Gap 11 mmol/L (3-11); Blood Urea Nitrogen 30 mg/dL (8-24); Bun/Creatinine Ratio 17.2 (12.0-20.0); CO2, Blood 22 mmol/L (21-32); Calcium, Blood 8.3 mg/dL (8.5-10.1); Chloride, Blood 114 mmol/L (98-108); Creatinine, Blood 1.74 mg/dL (0.60-1.20); Glomerular Filtration Rate 37 (60-); Glucose, Blood 98 mg/dL (70-99); Phosphorus, Blood 4.4 mg/dL (2.5-4.9); Potassium, Blood 3.7 mmol/L (3.5-5.5); Sodium, Blood 143 mmol/L (136-145)
[2024-05-14 07:51] VITALS: BP 133/67
[2024-05-14] MEDS ORDERED: CEFD300 PO (11:20)
--- NOTE | 2024-05-14 13:30 | NUR ---
SHIFT SUMMARY AND DISCHARGE PATIENT ALERT AND INTERACTIVE. PATIENT BUCKLAND AND INDEPENDENT IN THE ROOM. PATIENT EAGER TO GO HOME. DISCHARGE ORDERS PLACED AND REVIEWED WITH AND PATIENT. IV'S DC'D. PATIENT TO FOLLOW UP WITH CANCER CENTER AN OUTPATIENT.
[2024-05-15 19:44] LABS: ALBUMIN 3.26 g/dL (3.75-5.01); ALPHA 1 GLOBULIN 0.33 g/dL (0.19-0.46); ALPHA 2 GLOBULIN 0.48 g/dL (0.48-1.05); BETA GLOBULIN 0.82 g/dL (0.48-1.10); GAMMA 1.92 g/dL (0.62-1.51); TOTAL PROTEIN,SERUM 6.8 g/dL (6.3-8.2)
== END 2024-05-14 13:39 | disposition home or self-care (01) | DRG 689 ==
LOC: ER 16:28 → PCU 21:00 → ERHOLD 21:00 → PCU 05-11 00:45 → MEDS 05-13 18:24 → ENPENDDIS 05-14 10:10 → MEDS 05-14 13:39
PROVIDERS: Emergency Medicine; Internal Medicine; Nurse Practitioner Acute Care; Registered Nurse Oncology; Student in an Organized Health Care Education/Training Program; ADMIT Internal Medicine
PROC: 30233N1 Transfusion of Nonautologous Red Blood Cells into Peripheral Vein, Percutaneous Approach (ICD-10-PCS; principal; 2024-05-10)
DX: N12 Tubulo-interstitial nephritis, not specified as acute or chronic (principal); J96.01 Acute respiratory failure with hypoxia; C94.6 Myelodysplastic disease, not elsewhere classified; D63.1 Anemia in chronic kidney disease; M10.9 Gout, unspecified; E78.5 Hyperlipidemia, unspecified; N18.30 Chronic kidney disease, stage 3 unspecified; B96.89 Other specified bacterial agents as the cause of diseases classified elsewhere; Z66 Do not resuscitate; Z85.820 Personal history of malignant melanoma of skin; Q16.9 Congenital malformation of ear causing impairment of hearing, unspecified; Z98.890 Other specified postprocedural states; Z87.891 Personal history of nicotine dependence; Z79.899 Other long term (current) drug therapy; Z79.811 Long term (current) use of aromatase inhibitors
CPT/HCPCS: 0202U; 36415; 36430; 71045; 71250; 74177; 80053; 80069; 81001; 82607; 82728; 82746; 83540; 83605; 83735; 83880; 84145; 84155; 84165; 85025; 85027; 85045; 85060; 85610; 85730; 86850; 86900; 86901; 86923; 87040; 87070; 87077; 87086; 87186; 87205; 87633; 93005; 93010; 93306; 94761; 94762; 96360; 99285-25; A9270; J0456; J0696; J7030; J7050; P9016; Q9967

== ENCOUNTER → 2024-05-10 | Outpatient (CLI) | payer OTHER ==
[~2024-05-10] MED LIST changes: +Ultram50 MG PO
[2024-05-10 15:18] LABS: Hematocrit 25.2 % (37.0-53.0); Hemoglobin 7.3 g/dL (13.5-17.5); Mean Corpuscular HGB 24.5 pg (26.0-34.0); Mean Corpuscular Volume 85 fL (80-100); NRBC ABSOLUTE 0.56 K/mm3 (0.00-0.02); NRBC Auto 2.1 /100 WBC (0.0-0.2); Platelet Count 52 K/mm3 (150-400); RDW Coefficient Variation 20.6 % (11.7-14.2); RDW Standard Deviation 59.9 fL (35.1-46.3); Red Blood Cell Count 2.98 M/mm3 (4.30-5.90); White Blood Cell Count 27.04 K/mm3 (4.00-11.30)
[2024-05-10 16:20] LABS: BAND PERCENT MAN 5 % (0-8); BASOPHILS PERCENT MAN 0 % (0-2); EOSINOPHILS ABSOLUTE MAN 0.27 K/mm3 (0.00-0.68); EOSINOPHILS PERCENT MAN 1 % (0-6); LYMPHOCYTES PERCENT MAN 20 % (21-46); METAMYELOCYTE ABSOLUTE MAN 1.35 K/mm3 (0.00-0.00); METAMYELOCYTE PERCENT MAN 5 % (0-0); MONOCYTES ABSOLUTE MAN 0.81 K/mm3 (0.16-1.47); MONOCYTES PERCENT MAN 3 % (4-13); NEUTROPHILS ABSOLUTE MAN 14.06 K/mm3 (1.96-9.15); SEG NEUTROPHILS PERCENT MAN 47 % (41-73); TOTAL CELLS COUNTED 100
[2024-05-10 16:21] LABS: BLASTS PERCENT MAN 2 % (0-0); MYELOCYTE ABSOLUTE MAN 4.32 K/mm3 (0.00-0.00); MYELOCYTE PERCENT MAN 16 % (0-0); PROMYELOCYTE ABSOLUTE MAN 0.27 K/mm3 (0.00-0.00); PROMYELOCYTE PERCENT MAN 1 % (0-0)
== END | disposition home or self-care (01) ==
LOC: LAB SHORT 14:24 → LAB 14:24
PROVIDERS: Hospitalist
DX: D64.9 Anemia, unspecified (principal)
CPT/HCPCS: 85025

== ENCOUNTER 2024-05-19 03:09 | Day surgery (SDC) | payer OTHER ==
[2024-05-18 12:22] LABS: Hematocrit 19.5 % (37.0-53.0); Mean Corpuscular HGB 25.4 pg (26.0-34.0); Mean Corpuscular HGB Conc 29.7 g/dL (31.5-36.5); Mean Corpuscular Volume 86 fL (80-100); NRBC ABSOLUTE 1.02 K/mm3 (0.00-0.02); NRBC Auto 3.6 /100 WBC (0.0-0.2); RDW Coefficient Variation 20.3 % (11.7-14.2); RDW Standard Deviation 60.2 fL (35.1-46.3); Red Blood Cell Count 2.28 M/mm3 (4.30-5.90); White Blood Cell Count 28.31 K/mm3 (4.00-11.30)
[2024-05-18 12:30] LABS: Hemoglobin 5.8 g/dL (13.5-17.5); Platelet Count 46 K/mm3 (150-400)
[2024-05-18 12:46] LABS: BAND PERCENT MAN 7 % (0-8); BASOPHILS PERCENT MAN 0 % (0-2); BLASTS PERCENT MAN 1 % (0-0); EOSINOPHILS PERCENT MAN 0 % (0-6); LYMPHOCYTES ABSOLUTE MAN 5.66 K/mm3 (0.84-5.20); LYMPHOCYTES PERCENT MAN 20 % (21-46); METAMYELOCYTE ABSOLUTE MAN 1.98 K/mm3 (0.00-0.00); METAMYELOCYTE PERCENT MAN 7 % (0-0); MONOCYTES ABSOLUTE MAN 1.13 K/mm3 (0.16-1.47); MONOCYTES PERCENT MAN 4 % (4-13); MYELOCYTE ABSOLUTE MAN 2.83 K/mm3 (0.00-0.00); MYELOCYTE PERCENT MAN 10 % (0-0); NEUTROPHILS ABSOLUTE MAN 16.41 K/mm3 (1.96-9.15); SEG NEUTROPHILS PERCENT MAN 51 % (41-73); TOTAL CELLS COUNTED 100
[2024-05-18 12:47] LABS: Albumin, Blood 3.3 g/dL (3.4-5.0); Albumin/Globulin Ratio 0.8 (0.8-1.8); Bilirubin, Total 0.6 mg/dL (0.1-1.0); Bun/Creatinine Ratio 23.6 (12.0-20.0); Calcium, Blood 7.9 mg/dL (8.5-10.1); Creatinine, Blood 1.65 mg/dL (0.60-1.20); Globulin, Blood 4.1 g/dL (2.2-4.0); Potassium, Blood 3.8 mmol/L (3.5-5.5); Total Protein, Blood 7.4 g/dL (6.4-8.2)
[~2024-05-19 03:09] MED LIST changes: +CEFD300 PO
[2024-05-19] MEDS ORDERED: NS 250 ML IV SCH (07:05)
[2024-05-19 14:56] VITALS: BP 135/71
[2024-05-19 15:36] VITALS: BP 133/66
--- NOTE | 2024-05-19 15:55 | NUR ---
2ND UNIT OF [facility]S [facility]G, PT STATES THAT HIS BLADDER FEELS LIKE HE NEEDS TO URINATE BUT ALL "I AM DOING WHEN I URINATE IS BLOOD" URINAL GIVEN TO PT, PT URINATES BRIGHT RED URINE, RN'S SHELTON HARRINGTON AND LUCINA WORLEY IN CLINIC CAN NOT SEE THROUGH URINE REGARDING BLOOD AND WHEN URINAL EMPTIED IT APPEARS THAT IT IS FRESH BLOOD. APPROX 150CC. PTS VITALS REMAIN STABLE, BUT GETS DIZZY/WEAK UPON STANDING. THIS RN AND OTHER ATTENDING RN ENCOURAGE PT TO GO TO ER, WILL CALL TEXTILE ENGRAVER TO SEE WHAT THE WAITING PERIOD WILL BE. PTS H & H YESTERDAY WAS 5.8 AND 19.5 AND PT HAVING 2ND UNIT OF [facility] INFUSING
[2024-05-19 16:35] VITALS: BP 142/63
[2024-05-19 17:34] VITALS: BP 128/62
--- NOTE | 2024-05-19 17:36 | NUR ---
1735 PT TAKEN TO ER FOR ACTIVE BLEEDING FROM URINE. STOP TIME FOR SALINE WAS 1735
== END 2024-05-19 17:37 | disposition home or self-care (01) ==
LOC: ATC 03:09
PROVIDERS: Registered Nurse Oncology
DX: D64.9 Anemia, unspecified (principal); D69.6 Thrombocytopenia, unspecified; N18.9 Chronic kidney disease, unspecified; Z87.891 Personal history of nicotine dependence; Z79.899 Other long term (current) drug therapy; R31.9 Hematuria, unspecified; C91.10 Chronic lymphocytic leukemia of B-cell type not having achieved remission
CPT/HCPCS: 36415; 36430; 80053; 81001; 85025; 86850; 86900; 86901; 86923; 87086; J7050; P9016

== ENCOUNTER 2024-05-19 17:19 | Emergency (ER) | payer OTHER ==
[~2024-05-19] VITALS: Ht 180.3 cm; Wt 81.2 kg
[2024-05-19 17:28] LABS: Source, Urine Clean Catch
[2024-05-19 17:39] LABS: Appearance, Urine Bloody (Clear); Bilirubin, Urine Neg (Neg); Blood, Urine 5+ (Neg); Color, Urine Red (P-Yellow); Glucose Qualitative, Urine Neg (Neg); Ketones, Urine 2+ (Neg); Leukocyte Esterase, Urine 2+ (Neg); Nitrite, Urine Neg (Neg); Protein, Urine 4+ (Neg); Specific Gravity, Urine 1.015 (1.003-1.022); Urobilinogen, Urine NORM (Normal); pH, Urine 6.5 (5.0-8.0)
[2024-05-19 17:44] LABS: Hematocrit 25.7 % (37.0-53.0); Hemoglobin 7.8 g/dL (13.5-17.5); Mean Corpuscular HGB 26.6 pg (26.0-34.0); Mean Corpuscular HGB Conc 30.4 g/dL (31.5-36.5); Mean Corpuscular Volume 88 fL (80-100); NRBC ABSOLUTE 2.46 K/mm3 (0.00-0.02); NRBC Auto 7.1 /100 WBC (0.0-0.2); RDW Coefficient Variation 19.9 % (11.7-14.2); RDW Standard Deviation 58.4 fL (35.1-46.3); Red Blood Cell Count 2.93 M/mm3 (4.30-5.90); White Blood Cell Count 34.88 K/mm3 (4.00-11.30)
[2024-05-19 17:50] LABS: Platelet Count 47 K/mm3 (150-400)
[2024-05-19 18:06] LABS: Albumin, Blood 3.4 g/dL (3.4-5.0); Albumin/Globulin Ratio 0.8 (0.8-1.8); Bilirubin, Total 1.2 mg/dL (0.1-1.0); Bun/Creatinine Ratio 22.9 (12.0-20.0); Calcium, Blood 8.4 mg/dL (8.5-10.1); Creatinine, Blood 1.57 mg/dL (0.60-1.20); Globulin, Blood 4.5 g/dL (2.2-4.0); Potassium, Blood 4.2 mmol/L (3.5-5.5); Total Protein, Blood 7.9 g/dL (6.4-8.2)
[2024-05-19 18:12] LABS: Red Blood Cells, Urine TNTC /hpf (0-2); White Blood Cells, Urine 25-50 /hpf (0-5)
[2024-05-19 18:13] LABS: Amorphous Light (0-Heavy); Bacteria Many /hpf; Mucus Mod (0-Heavy); Squamous Epithelial Cells Few /hpf (Few); Transitional Epithelial Cells Rare /hpf (0-Rare)
[2024-05-19 19:07] LABS: BAND PERCENT MAN 12 % (0-8); BASOPHILS PERCENT MAN 0 % (0-2); EOSINOPHILS PERCENT MAN 0 % (0-6); LYMPHOCYTES % ATYPICAL MANUAL 1 % (0-0); LYMPHOCYTES ABSOLUTE MAN 5.23 K/mm3 (0.84-5.20); LYMPHOCYTES PERCENT MAN 14 % (21-46); METAMYELOCYTE ABSOLUTE MAN 0.69 K/mm3 (0.00-0.00); METAMYELOCYTE PERCENT MAN 2 % (0-0); MONOCYTES ABSOLUTE MAN 2.44 K/mm3 (0.16-1.47); MONOCYTES PERCENT MAN 7 % (4-13); NEUTROPHILS ABSOLUTE MAN 18.13 K/mm3 (1.96-9.15); SEG NEUTROPHILS PERCENT MAN 40 % (41-73); TOTAL CELLS COUNTED 100
[2024-05-19 19:09] LABS: MYELOCYTE ABSOLUTE MAN 6.62 K/mm3 (0.00-0.00); MYELOCYTE PERCENT MAN 19 % (0-0)
[2024-05-19 19:10] LABS: BLASTS PERCENT MAN 5 % (0-0)
[2024-05-19 22:00] VITALS: BP 133/59
== END 2024-05-19 22:15 | disposition home or self-care (01) ==
LOC: ER 17:19
PROVIDERS: Physician Assistant
DX: R31.9 Hematuria, unspecified (principal); C91.10 Chronic lymphocytic leukemia of B-cell type not having achieved remission; D64.9 Anemia, unspecified; D69.6 Thrombocytopenia, unspecified; N28.9 Disorder of kidney and ureter, unspecified; R73.9 Hyperglycemia, unspecified; E80.6 Other disorders of bilirubin metabolism; Z79.899 Other long term (current) drug therapy; Z88.8 Allergy status to other drugs, medicaments and biological substances; Z87.891 Personal history of nicotine dependence
CPT/HCPCS: 80053; 81001; 85025; 87086; 99283

== ENCOUNTER 2024-05-28 02:38 | Day surgery (SDC) | payer OTHER ==
[2024-05-26 12:40] LABS: Hematocrit 22.4 % (37.0-53.0); Hemoglobin 6.5 g/dL (13.5-17.5); Mean Corpuscular HGB 26.4 pg (26.0-34.0); Mean Corpuscular Volume 91 fL (80-100); NRBC ABSOLUTE 1.04 K/mm3 (0.00-0.02); NRBC Auto 3.5 /100 WBC (0.0-0.2); RDW Coefficient Variation 21.8 % (11.7-14.2); RDW Standard Deviation 69.1 fL (35.1-46.3); Red Blood Cell Count 2.46 M/mm3 (4.30-5.90); White Blood Cell Count 30.14 K/mm3 (4.00-11.30)
[2024-05-26 12:57] LABS: Platelet Count 41 K/mm3 (150-400)
[2024-05-26 13:23] LABS: BAND PERCENT MAN 3 % (0-8); BASOPHILS PERCENT MAN 0 % (0-2); BLASTS PERCENT MAN 3 % (0-0); EOSINOPHILS PERCENT MAN 1 % (0-6); LYMPHOCYTES ABSOLUTE MAN 7.23 K/mm3 (0.84-5.20); LYMPHOCYTES PERCENT MAN 24 % (21-46); METAMYELOCYTE PERCENT MAN 1 % (0-0); MONOCYTES PERCENT MAN 4 % (4-13); MYELOCYTE ABSOLUTE MAN 3.01 K/mm3 (0.00-0.00); MYELOCYTE PERCENT MAN 10 % (0-0); NEUTROPHILS ABSOLUTE MAN 16.87 K/mm3 (1.96-9.15); PLASMA CELLS PERCENT MAN 1 % (0-0); SEG NEUTROPHILS PERCENT MAN 53 % (41-73); TOTAL CELLS COUNTED 100
[2024-05-28] MEDS ORDERED: NS 250 ML IV SCH (06:40)
[2024-05-28 07:41] VITALS: BP 134/67
[2024-05-28 08:03] VITALS: BP 119/63
[2024-05-28 09:13] VITALS: BP 118/52
[2024-05-28 09:36] VITALS: BP 113/55
[2024-05-28 10:56] VITALS: BP 123/64
== END 2024-05-28 10:56 | disposition home or self-care (01) ==
LOC: ATC 02:38 → EDSTATUS 05-12 11:50 → ATC 05-12 11:50 → LAB FUT 05-12 11:50
PROVIDERS: Internal Medicine Hematology & Oncology
DX: D69.6 Thrombocytopenia, unspecified (principal); Z87.891 Personal history of nicotine dependence
CPT/HCPCS: 36415; 85025; 86850; 86900; 86901; 86923; J7050; P9016

== ENCOUNTER 2024-06-08 09:37 | Day surgery (SDC) | payer OTHER ==
[2024-06-07 12:47] LABS: Hematocrit 21.9 % (37.0-53.0); Hemoglobin 6.6 g/dL (13.5-17.5); Mean Corpuscular HGB 27.8 pg (26.0-34.0); Mean Corpuscular HGB Conc 30.1 g/dL (31.5-36.5); Mean Corpuscular Volume 92 fL (80-100); NRBC ABSOLUTE 1.67 K/mm3 (0.00-0.02); NRBC Auto 3.7 /100 WBC (0.0-0.2); RDW Coefficient Variation 21.3 % (11.7-14.2); Red Blood Cell Count 2.37 M/mm3 (4.30-5.90); White Blood Cell Count 44.97 K/mm3 (4.00-11.30)
[2024-06-07 13:00] LABS: Albumin, Blood 3.2 g/dL (3.4-5.0); Albumin/Globulin Ratio 0.7 (0.8-1.8); Bilirubin, Total 0.7 mg/dL (0.1-1.0); Bun/Creatinine Ratio 21.3 (12.0-20.0); Calcium, Blood 8.6 mg/dL (8.5-10.1); Creatinine, Blood 1.41 mg/dL (0.60-1.20); Globulin, Blood 4.4 g/dL (2.2-4.0); Total Protein, Blood 7.6 g/dL (6.4-8.2)
[2024-06-07 13:04] LABS: Platelet Count 38 K/mm3 (150-400)
[2024-06-07 13:21] LABS: BAND PERCENT MAN 9 % (0-8); BASOPHILS PERCENT MAN 0 % (0-2); BLASTS PERCENT MAN 8 % (0-0); EOSINOPHILS ABSOLUTE MAN 1.34 K/mm3 (0.00-0.68); EOSINOPHILS PERCENT MAN 3 % (0-6); LYMPHOCYTES ABSOLUTE MAN 6.29 K/mm3 (0.84-5.20); LYMPHOCYTES PERCENT MAN 14 % (21-46); METAMYELOCYTE ABSOLUTE MAN 1.79 K/mm3 (0.00-0.00); METAMYELOCYTE PERCENT MAN 4 % (0-0); MONOCYTES ABSOLUTE MAN 1.79 K/mm3 (0.16-1.47); MONOCYTES PERCENT MAN 4 % (4-13); MYELOCYTE ABSOLUTE MAN 5.39 K/mm3 (0.00-0.00); MYELOCYTE PERCENT MAN 12 % (0-0); NEUTROPHILS ABSOLUTE MAN 23.83 K/mm3 (1.96-9.15); PROMYELOCYTE ABSOLUTE MAN 0.89 K/mm3 (0.00-0.00); PROMYELOCYTE PERCENT MAN 2 % (0-0); SEG NEUTROPHILS PERCENT MAN 44 % (41-73); TOTAL CELLS COUNTED 100
[2024-06-08] MEDS ORDERED: NS 250 ML IV SCH (11:50)
[2024-06-08 13:40] VITALS: BP 123/65
[2024-06-08 14:05] VITALS: BP 119/58
[2024-06-08 15:08] VITALS: BP 130/62
[2024-06-08 15:34] VITALS: BP 129/65
[2024-06-08 15:56] VITALS: BP 126/70
[2024-06-08 16:58] VITALS: BP 127/60
--- NOTE | 2024-06-08 17:53 | NUR ---
STOP TIME: 3851
== END 2024-06-08 17:43 | disposition home or self-care (01) ==
LOC: ATC 09:37 → EDSTATUS 09:39 → ATC 17:43
PROVIDERS: Internal Medicine Hematology & Oncology
DX: D47.1 Chronic myeloproliferative disease (principal); D69.6 Thrombocytopenia, unspecified; D64.9 Anemia, unspecified
CPT/HCPCS: 36415; 36430; 80053; 85025; 86850; 86900; 86901; 86923; J7050; P9016

== ENCOUNTER 2024-06-18 09:50 | Day surgery (SDC) | payer OTHER ==
[2024-06-18] MEDS ORDERED: NS 250 ML IV SCH ×2 (10:10→11:25)
--- NOTE | 2024-06-18 13:50 | NUR ---
Pt arrived from home accompanied by his and dtr. He has a slow steady trickle of blood coming from a bone marrow biopsy site on his lower left back area. Family reports his bone marrow biopsy was done 3-4 weeks ago. Pt reports "a plug-like piece of dried blood" fell out of his lower back last night and he has been continously bleeding since then. Blood soaked through pt's waistband on his pants and through his shirt. Spoke with Noelle at Dr. Garzon's office. Per Dr. Garzon, hold direct constant pressure over bleeding sight for 5 minutes. If the bleeding stops, go ahead with transfusion as planned in the infusion center. If bleeding continues after 5 minutes of pressure, send pt to the ER. Pressure held x 5 minutes, slow trickle continues from the open area. Covered with gauze 2x2s, telfa and abd pain and mefix tape. Pt's and dtr will take pt via wc to the ER. Called and spoke with ER furniture delivery driver, Lacey and gave her an update. VS on arrival to the unit today: T = 97.8, BP = 121/57, HR = 67, RR = 18/min, O2 sat 100% on RA.
[2024-06-18] MEDS ORDERED: AMLODIPINE BESY10 MG PO (14:17)
[2024-06-18] MEDS ORDERED: VONJO100 MG PO (14:17)
[2024-06-18] MEDS ORDERED: LISI20 PO (14:18)
== END 2024-06-18 13:47 | disposition other institution (70) ==
LOC: ATC 09:50
DX: D47.1 Chronic myeloproliferative disease (principal); D64.9 Anemia, unspecified
CPT/HCPCS: 36415

== ENCOUNTER 2024-07-04 16:50 | Emergency (ER) | payer OTHER ==
[~2024-07-04] VITALS: Ht 180.3 cm; Wt 81.7 kg
[~2024-07-04 16:50] MED LIST changes: +AMLODIPINE BESY10 MG PO; +Acetaminophen325 M1 PO; +Amoxicillin500 MG PO; +LISI20 PO; +VISBIOME 112.51 EACH PO; +VONJO100 MG PO
[2024-07-04 17:25] VITALS: BP 122/57
== END 2024-07-04 18:44 | disposition home or self-care (01) ==
LOC: ER 16:50
DX: L76.22 Postprocedural hemorrhage of skin and subcutaneous tissue following other procedure (principal); Y83.8 Other surgical procedures as the cause of abnormal reaction of the patient, or of later complication, without mention of misadventure at the time of the procedure; I12.9 Hypertensive chronic kidney disease with stage 1 through stage 4 chronic kidney disease, or unspecified chronic kidney disease; N18.30 Chronic kidney disease, stage 3 unspecified; E78.5 Hyperlipidemia, unspecified; Z88.1 Allergy status to other antibiotic agents; Z79.899 Other long term (current) drug therapy
CPT/HCPCS: 12001; 99283-25

== ENCOUNTER 2024-07-06 03:31 | Day surgery (SDC) | payer OTHER ==
[2024-07-05 12:31] LABS: Hematocrit 23.9 % (37.0-53.0); Hemoglobin 7.5 g/dL (13.5-17.5); Mean Corpuscular HGB 27.6 pg (26.0-34.0); Mean Corpuscular HGB Conc 31.4 g/dL (31.5-36.5); Mean Corpuscular Volume 88 fL (80-100); NRBC ABSOLUTE 0.33 K/mm3 (0.00-0.02); NRBC Auto 0.7 /100 WBC (0.0-0.2); RDW Coefficient Variation 17.4 % (11.7-14.2); RDW Standard Deviation 54.6 fL (35.1-46.3); Red Blood Cell Count 2.72 M/mm3 (4.30-5.90); White Blood Cell Count 48.46 K/mm3 (4.00-11.30)
[2024-07-05 12:46] LABS: Platelet Count 23 K/mm3 (150-400)
[2024-07-05 13:00] LABS: BAND PERCENT MAN 3 % (0-8); BASOPHILS PERCENT MAN 0 % (0-2); BLASTS PERCENT MAN 3 % (0-0); EOSINOPHILS PERCENT MAN 0 % (0-6); LYMPHOCYTES ABSOLUTE MAN 7.26 K/mm3 (0.84-5.20); LYMPHOCYTES PERCENT MAN 15 % (21-46); METAMYELOCYTE ABSOLUTE MAN 3.87 K/mm3 (0.00-0.00); METAMYELOCYTE PERCENT MAN 8 % (0-0); MONOCYTES ABSOLUTE MAN 2.42 K/mm3 (0.16-1.47); MONOCYTES PERCENT MAN 5 % (4-13); MYELOCYTE ABSOLUTE MAN 6.78 K/mm3 (0.00-0.00); MYELOCYTE PERCENT MAN 14 % (0-0); NEUTROPHILS ABSOLUTE MAN 26.65 K/mm3 (1.96-9.15); SEG NEUTROPHILS PERCENT MAN 52 % (41-73); TOTAL CELLS COUNTED 100
[2024-07-05 14:35] VITALS: BP 143/59
[2024-07-05 14:52] VITALS: BP 119/48
[2024-07-05 15:55] VITALS: BP 128/74
[~2024-07-06 03:31] MED LIST changes: +NS 250 ML IV SCH
[2024-07-06] MEDS ORDERED: NS 250 ML IV SCH (13:15)
[2024-07-06 13:30] VITALS: BP 126/65
[2024-07-06 14:00] VITALS: BP 110/62
[2024-07-06 15:00] VITALS: BP 130/56
[2024-07-06 15:25] VITALS: BP 141/74
== END 2024-07-06 15:27 | disposition home or self-care (01) ==
LOC: ATC 03:31
PROVIDERS: Internal Medicine Hematology & Oncology
DX: D47.1 Chronic myeloproliferative disease (principal); D64.9 Anemia, unspecified; N18.9 Chronic kidney disease, unspecified; Z87.891 Personal history of nicotine dependence
CPT/HCPCS: 36415; 36430; 85025; 86850; 86900; 86901; 86923; J7050; P9016; P9035